=== PATIENT | female | born 1960 | race Caucasian/White ===

== ENCOUNTER 2024-12-18 13:46 | Emergency (ER) | payer OTHER ==
[~2024-12-18] VITALS: Ht 170.2 cm; Wt 95.5 kg
[2024-12-18 13:56] VITALS: BP 177/108; PULSE 89; O2SAT 98
--- NOTE | 2024-12-18 14:30 | RADIOLOGY REPORT ---
CLINICAL INDICATION: Left Shoulder Pain TECHNIQUE: 3 radiographic views of the left shoulder were obtained. Comparison: None FINDINGS/IMPRESSION: There is no evidence of acute fracture or dislocation. Consider MRI for further evaluation shoulder pain. Anterior fusion left cervical vertebra unchanged from 12/18/2024. The visualized joint space is well maintained. The alignment is anatomical. There is no radiopaque foreign body.
--- NOTE | 2024-12-18 14:35 | Physician Documentation ---
History of Present Illness General Chief Complaint: Shoulder pain Stated Complaint: ARM PAIN Time Seen by MD: 14:07 History of Present Illness Initial Comments 65-year-old right-hand dominant female who presents to the emergency department with the worker's injury to her left shoulder that happened on Saturday. Reports she was reaching way overhead on some shelves and felt a pop in her left shoulder. Has had prior left shoulder pathology to include surgery in the past. She is grossly neurologically intact. She has reduced range of motion due to pain. She is requiring pain management. Medication Reconciliation Allergies: Uncoded Allergies: DEMERAL (Allergy, Severe, 12/18/24) respiratory distress Scheduled PRN Oxycodone Hcl/Acetaminophen 5/325 MG* (Percocet 5/325 MG*), 1 TAB PO TID PRN PRN for pain Review of Systems All Other Systems at this time: Reviewed and Negative Constitutional: Denies: fever Musc: Reports: joint pain, swelling Physical Exam Physical Exam Vital Signs: RN Vital Signs have been reviewed: Yes, Temperature: 98.0, Heart Rate: 89, Respiratory Rate: 16, BP: 177/108, Pulse Oximetry: 98, Weight: 95.450 General Appearance: alert, WD/WN, moderate distress Head: normal inspection Face: normal inspection Pupils/EOM/Fundus: PERRLA Back: normal inspection Extremities: inflammation Extremities Reduced range of motion with abduction, adduction forward flexion internal rotation external rotation Neurologic: oriented x4 Motor / Sensory: no motor deficit, no sensory deficit Psychiatric: normal mood/affect Skin: normal color, warm/dry; No: rash Progress Results/Orders Results/Orders Orders - SHELLIE LOMAX Ortho Orders (12/18/24 ) Completed Orders - SHELLIE LOMAX PAC Oxycodone Immed Release Tablet (Oxy Ir T (12/18/24 14:35) Vital Signs 12/18/24 12/18/24 12/18/24 13:56 14:45 15:18 Temp 98.0 98.0 Pulse 89 Resp 16 18 B/P (MAP) 177/108 Pulse Ox 98 Medical Decision Making Differential Diagnosis 64-year-old female who presents to the emergency department with with acute on chronic left shoulder injury which happened at work. Requires pain management x-ray imaging. Preliminary x-ray findings by myself shows subluxation without dislocation. No evidence of Hill-Sachs or Bankart lesion. X-ray imaging pending final review. Received oxycodone 10 mg four acute moderate pain. Plan is to place in his sling and have patient follow up with worker's injury for orthopedic referral. She will be removed from the work place for three days. Your sling as well fitting she remains grossly neurologically intact. Final read by radiologist reassuring for no acute dislocation or fracture. Patient discharge safe stable condition. Departure Disposition: HOME / SELF CARE / HOMELESS Impression: Primary Impression: Shoulder joint pain Qualified Codes: M25.512 - Pain in left shoulder Condition: Improved Discharge Instructions: Shoulder Pain, [id number] Additional Instructions: Today in the emergency department you had an x-ray obtained your left shoulder which was reassuring for no fracture or dislocation. You received pain management for acute injury. He must follow up with your sign worker's compensation medical office for further evaluation and consideration of orthopedic referral. I have provided you with pain management prescription. Please return to the emergency department as needed. Thank you for choosing [facility]. Referrals: NO PRIMARY CARE PROVIDER (PCP) Prescriptions Oxycodone Hcl/Acetaminophen 5/325 MG* (Percocet 5/325 MG*) 5 Mg/325 Mg Tablet 1 TAB PO TID PRN PRN for pain for 5 Days, #15 TAB Prov: SHELLIE LOMAX 12/18/24 Education Educated: Patient, Family Educated regarding: diagnosis Signature Scribe Signature: . Attestation: . SHELLIE LOMAX December 18, 2024 14:35
[2024-12-18] MEDS ORDERED: PER5325T PO (14:39)
[2024-12-18 14:45] VITALS: RESP 18
[2024-12-18] MEDS: oxyCODONE IR 5mg (immed. release) tablet PO ONE (14:45)
[2024-12-18 15:18] VITALS: TEMP 98
== END 2024-12-18 15:22 | disposition home or self-care (01) ==
LOC: ER 13:48
DX: M25.512 Pain in left shoulder (principal)
CPT/HCPCS: 73030; 99283; A4565